=== PATIENT | female | born 1950 | race Caucasian/White ===

== ENCOUNTER → 2019-07-15 10:40 | Outpatient (BNVA) | payer MEDICARE, OTHER, SELFPAY | PROVIDERS: PCP Pediatrics; Referring Provider Pediatrics; Visit Provider Psychiatry & Neurology Neurology | DX: G56.03 Carpal tunnel syndrome, bilateral upper limbs (principal) | CPT/HCPCS: 95886; 95911 ==

== ENCOUNTER 2023-07-25 14:21 | Outpatient (CLI) | payer MEDICARE, OTHER, SELFPAY ==
[2023-07-25 15:43] LABS: Free T4 Free Thyroxine 1.02 ng/dL (0.82-1.77); Testosterone Total 4.7 ng/dL (2.9-40.8); Thyroid Stimulating Hormone 1.39 uIU/mL (0.27-4.20)
[2023-07-26 22:16] LABS: Dehydroepiandrosterone Sulfate 30 mcg/dL (4-157)
[2023-07-27 07:39] LABS: Thyroglobulin AB <1 IU/mL (< or = 1)
[2023-07-28 08:49] LABS: Thyroid Peroxidase Antobodies 2 IU/mL (<9)
[2023-08-02 12:42] LABS: IGF1 LC/MS 131 ng/mL (34-245); Z Score (Female) 0.5 SD (-2.0 - +2.0)
[2023-08-02 16:55] LABS: TSH Receptor Binding Antibody 2.03 IU/L (< OR = 2.00)
== END 2023-07-25 14:22 | disposition home or self-care (01) ==
LOC: LAB 14:24
PROVIDERS: PCP Pediatrics; Visit Provider Internal Medicine
DX: G56.03 Carpal tunnel syndrome, bilateral upper limbs (principal); E07.9 Disorder of thyroid, unspecified; R23.2 Flushing
CPT/HCPCS: 36415; 82627; 82670; 83516; 84305; 84403; 84439; 84443; 86376; 86800

== ENCOUNTER 2023-08-10 12:10 | Outpatient (CLI) | payer MEDICARE, OTHER, SELFPAY ==
[2023-08-10 12:45] LABS: Urine Creatinine 86 mg/dL (28-217)
[2023-08-10 13:59] LABS: Total Volume Urine 1200 ml
[2023-08-16 17:50] LABS: Free Cortisol Urine 21.7 mcg/24 h (4.0-50.0); Total Urine 1200 mL; Urine Creatinine 0.99 g/24 h (0.50-2.15)
== END 2023-08-10 12:11 | disposition home or self-care (01) ==
LOC: LAB 12:11
PROVIDERS: PCP Pediatrics; Visit Provider Internal Medicine
DX: E07.9 Disorder of thyroid, unspecified (principal); R23.2 Flushing; G56.03 Carpal tunnel syndrome, bilateral upper limbs
CPT/HCPCS: 82384; 82530; 82570

== ENCOUNTER → 2023-08-16 09:48 | Outpatient (BNVA) | payer MEDICARE, OTHER, SELFPAY | PROVIDERS: PCP Pediatrics; Visit Provider Internal Medicine | DX: R23.2 Flushing (principal); Z90.710 Acquired absence of both cervix and uterus; R79.89 Other specified abnormal findings of blood chemistry; E05.00 Thyrotoxicosis with diffuse goiter without thyrotoxic crisis or storm | CPT/HCPCS: 99214 ==

== ENCOUNTER 2023-10-11 16:03 | Outpatient (CLI) | payer OTHER, MEDICARE, SELFPAY ==
[2023-10-11 21:07] LABS: Free T4 Free Thyroxine 1.12 ng/dL (0.82-1.77); Thyroid Stimulating Hormone 1.61 uIU/mL (0.27-4.20)
[2023-10-14 06:19] LABS: T3 Total 76 ng/dL (76-181)
== END 2023-10-11 16:04 | disposition home or self-care (01) ==
PROVIDERS: PCP Pediatrics; Visit Provider Internal Medicine
DX: G56.03 Carpal tunnel syndrome, bilateral upper limbs (principal); Z90.710 Acquired absence of both cervix and uterus; R79.89 Other specified abnormal findings of blood chemistry; E05.00 Thyrotoxicosis with diffuse goiter without thyrotoxic crisis or storm
CPT/HCPCS: 36415; 84439; 84443; 84480

== ENCOUNTER 2024-04-15 13:30 | Outpatient (CLI) | payer OTHER, MEDICARE, SELFPAY ==
[2024-04-15 14:12] LABS: Free T4 Free Thyroxine 1.09 ng/dL (0.82-1.77); Thyroid Stimulating Hormone 3.18 uIU/mL (0.27-4.20)
[2024-04-17 04:20] LABS: T3 Total 134 ng/dL (76-181)
== END 2024-04-15 13:31 | disposition home or self-care (01) ==
LOC: LAB 13:31
PROVIDERS: PCP Pediatrics; Visit Provider Internal Medicine
DX: E05.00 Thyrotoxicosis with diffuse goiter without thyrotoxic crisis or storm (principal); R79.89 Other specified abnormal findings of blood chemistry
CPT/HCPCS: 36415; 84439; 84443; 84480